=== PATIENT | female | born 1970 | race Hispanic/Latino ===

== ENCOUNTER → 2017-10-05 | Outpatient (CLI) | payer OTHER ==
--- NOTE | 2017-10-06 08:29 | Diagnostic Imaging Report ---
#[id number] - [facility] ULTRASOUND OF THE RIGHT BREAST : 10/05/2017 Comparison is made to exams dated: 01/24/2017 ultrasound, 01/24/2017 mammogram - [facility] and 01/12/2017 mammogram - [facility]. Color flow and real-time ultrasound were performed on the entire right breast with scanning in all quadrants, retroareolar region and the right axilla. -At 3 o'clock 2 cm from the nipple the hypoechoic nodule measuring 1.4 x 0.7 x 0.7 cm is slightly larger in size but having a benign appearance. -At 7 o'clock 2 cm from the nipple the hypoechoic nodule measuring 2.0 x 1.1 x 1.6 cm appears similar (previously described as 9 o'clock position before) -At 9 o'clock 5 cm from the nipple the hypoechoic nodule measuring 1.0 x 0.8 x 1.0 appears similar (previously described as a 10 o'clock position before) -There are multiple cysts present that appear unchanged. IMPRESSION: BENIGN Stable appearing nodules and cysts with mostly similar sizes but listed at different locations d/t Tech's varibility. No evidence to suggest malignancy. A 1 year screening mammogram is recommended. Kaushik Chung Jr., D.O. cw/:10/05/2017 15:01:21 Managing Consultant Clinical Professor: MIL STEWART, [facility] letter sent: Compared to Prior B9 Ultrasound BI-RADS: 2 Benign
== END ==
LOC: US 08:04
PROVIDERS: ATTEND Family Medicine
DX: R92.2 Inconclusive mammogram (principal)

== ENCOUNTER → 2018-04-27 | Outpatient (CLI) | payer OTHER ==
--- NOTE | 2018-04-27 16:10 | Diagnostic Imaging Report ---
#[id number] - [facility] : 04/27/2018 Comparison is made to exams dated: 10/05/2017 ultrasound and 01/24/2017 ultrasound - [facility]. Color flow and real-time ultrasound were performed on the entire right breast with scanning in all four quadrants, retroareolar regiona and the right axilla. -The solid nodule at 3 o'clock is unchanged in appearance and now measures 1.5 x 0.7 x 0.6 cm (larger by 1 mm). -The solid nodule at 7 o'clock is unchanged in appearance and now measures 2.4 x 1.1 x 1.6 cm (larger by 3 mm). -The solid nodule at 9 o'clock is unchanged in appearance and now measures 0,8 x 0.8 x 1.0 cm (smaller by 1 mm). -Scattered benign cysts are noted at 6, 7, 9 and 10 o'clock. IMPRESSION: BENIGN There is no sonographic evidence of malignancy. A 1 year screening mammogram is recommended. Kaushik Chung Jr., D.O. cw/:04/27/2018 14:33:14 Communications Designer: BISI YIP, [facility] letter sent: Normal Exam Ultrasound BI-RADS: 2 Benign
--- NOTE | 2018-04-27 16:10 | Diagnostic Imaging Report ---
#[id number] - [facility] ULTRASOUND OF THE LEFT BREAST : 04/27/2018 Comparison is made to exams dated: 10/05/2017 ultrasound and 10/05/2017 ultrasound - [facility]. Color flow and real-time ultrasound were performed on the entire left breast with scanning in all four quadrants, retroareolar region and the left axilla. -Multple benign appearing cysts are present @ 1, 2, 5, 6 and 8 o'clock. IMPRESSION: BENIGN There is no sonographic evidence of malignancy. A 1 year screening mammogram is recommended. Kaushik Chung Jr., D.O. cw/:04/27/2018 14:35:44 Waste Water Operator: BISI YIP, [facility] letter sent: Normal Exam Ultrasound BI-RADS: 2 Benign
== END ==
LOC: US 08:43
PROVIDERS: ATTEND Family Medicine
DX: N64.4 Mastodynia (principal)

== ENCOUNTER → 2018-06-04 | Outpatient (CLI) | payer OTHER | LOC: MAMMO 09:10 | PROVIDERS: ATTEND Family Medicine | DX: Z12.31 Encounter for screening mammogram for malignant neoplasm of breast (principal) | CPT/HCPCS: 77067 ==

== ENCOUNTER → 2020-12-31 | Outpatient (CLI) | payer OTHER | LOC: MAMMO 08:45 | PROVIDERS: ATTEND Family Medicine | DX: Z12.31 Encounter for screening mammogram for malignant neoplasm of breast (principal) | CPT/HCPCS: 77067 ==

== ENCOUNTER → 2023-08-24 | Outpatient (REF) | payer OTHER | LOC: MAMMO 10:30 | PROVIDERS: ATTEND Family Medicine | DX: R92.8 Other abnormal and inconclusive findings on diagnostic imaging of breast (principal) ==